=== PATIENT | male | born 1960 | race Caucasian/White ===

== ENCOUNTER → 2020-08-31 | Outpatient (CLI) | payer OTHER ==
[~2020-08-31] MED LIST: APR25 PO; ASP325 PO; ATORVASTATIN CA40 M1 PO; BLOOD PRESSURE CUFF TOP; CORE25 PO; NOR5 PO; ZES20 PO
== END ==
LOC: MI 09:00 → CT 09:42 → MI 10:00 → CT 10:00
PROVIDERS: ATTEND Student in an Organized Health Care Education/Training Program
PROC: BW28ZZZ Computerized Tomography (CT Scan) of Head (ICD-10-PCS; principal; 2020-08-31)
DX: I63.9 Cerebral infarction, unspecified (principal); Z86.73 Personal history of transient ischemic attack (TIA), and cerebral infarction without residual deficits

== ENCOUNTER → 2020-10-22 | Outpatient (CLI) | payer OTHER | END | disposition home or self-care (01) | LOC: MI 13:42 | PROVIDERS: ATTEND Orthopaedic Surgery | DX: M25.512 Pain in left shoulder (principal) ==

== ENCOUNTER → 2020-10-28 | Outpatient (CLI) | payer OTHER | END | disposition home or self-care (01) | LOC: MI 09:07 | PROVIDERS: ATTEND Student in an Organized Health Care Education/Training Program | PROC: B030ZZZ Magnetic Resonance Imaging (MRI) of Brain (ICD-10-PCS; principal; 2020-10-28) | PROC: BP39ZZZ Magnetic Resonance Imaging (MRI) of Left Shoulder (ICD-10-PCS; 2020-10-28) | DX: M75.42 Impingement syndrome of left shoulder (principal); M75.02 Adhesive capsulitis of left shoulder; Z86.73 Personal history of transient ischemic attack (TIA), and cerebral infarction without residual deficits ==